=== PATIENT | male | born 1955 | race Caucasian/White ===

== ENCOUNTER 2017-02-04 05:25 | Emergency (ER) | payer OTHER ==
[~2017-02-04] VITALS: Ht 177.8 cm; Wt 86.2 kg
[~2017-02-04 05:25] MED LIST: CYCL-365 PO; HYDR-914 PO; IBUP-1017 PO
[2017-02-04 05:35] VITALS: BP_SYST 148
[2017-02-04] MEDS ORDERED: KETOROLAC TROMETHAMINE 30 MG VIAL IVP ONE (06:00)
[2017-02-04] MEDS ORDERED: HYDROmorphone 1 MG INJ. 1 MG/ML AMPUL IVP ONE (06:00)
[2017-02-04] MEDS ORDERED: ONDANSETRON HCL 4 MG/2 ML VIAL IVP ONE (06:00)
[2017-02-04 07:19] VITALS: BP_SYST 123
== END 2017-02-04 07:19 | disposition home or self-care (01) ==
LOC: SED 05:25
DX: M54.5 Low back pain (principal)
CPT/HCPCS: 96374; 96375; 99284; J1170; J1885; J2405